=== PATIENT | female | born 1995 | race Caucasian/White ===

== ENCOUNTER 2025-08-01 13:57 | Emergency (ER) | payer SELFPAY ==
[2025-08-01] MEDS: MOTRIN 600 MG PO (15:57)
[2025-08-01] MEDS: ZANAFLEX 4 MG PO (15:58)
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
== END 2025-08-01 17:20 | disposition home or self-care (01) ==
LOC: EMR 13:57
PROVIDERS: EMERGENCY PHYSICIAN Emergency Medicine
DX: S29.012A Strain of muscle and tendon of back wall of thorax, initial encounter (principal); M54.2 Cervicalgia; V49.49XA Driver injured in collision with other motor vehicles in traffic accident, initial encounter
CPT/HCPCS: 99283; 72040; 72072